=== PATIENT | male | born 1945 | race Caucasian/White ===

== ENCOUNTER 2020-07-13 17:10 | Emergency (ER) | payer OTHER ==
[~2020-07-13] VITALS: Ht 175.3 cm; Wt 70.5 kg
[2020-07-13] MEDS ORDERED: ASPIRIN 81 MG TABLET CHEW ONE (17:36)
[2020-07-13] MEDS ORDERED: METOPROLOL 1 MG/ML, 5ML ONE (17:39)
[2020-07-13] MEDS ORDERED: SODIUM CHLORIDE FLUSH 10ML SYR IVF ONE (18:00)
[2020-07-13] MEDS ORDERED: METOPROLOL 1 MG/ML, 5ML IVPush PRN (18:00)
[2020-07-13] MEDS ORDERED: PLEASE ENTER ALLERGIES MC SCH (18:00)
[2020-07-13] MEDS ORDERED: ASPIRIN 81 MG TABLET CHEW PO ONE (18:00)
[2020-07-13 18:13] LABS: ALBUMIN 3.7 g/dL (3.4-5.0); ANION GAP 6 mmol/L (5-15); CALCIUM 8.7 mg/dL (8.5-10.1); CHLORIDE 109 mmol/L (98-107); CREATININE 1.03 mg/dL (0.7-1.3)
[2020-07-13 18:18] LABS: BASOPHILS % (AUTO) 1 % (0-1); EOSINOPHILS % (AUTO) 6 % (1-7); LYMPHOCYTES % (AUTO) 14 % (22-44); MEAN CORPUSCULAR HEMOGLOBIN 30.7 pg (27.5-34.5); MEAN CORPUSCULAR HGB CONC 33.3 g/dL (33.2-36.2); MEAN PLATELET VOLUME 8.6 fL (7.4-10.4); MONOCYTES % (AUTO) 6 % (2-9); NEUTROPHILS % (AUTO) 73 % (42-75); PLATELET COUNT 191 x10^3/uL (130-400); RED CELL DISTRIBUTION WIDTH 13.8 % (9.4-14.8)
[2020-07-13 18:23] LABS: MD NO
[2020-07-13 18:57] VITALS: BP 140/73
[2020-07-13] MEDS ORDERED: APIXABAN 5 MG TABLET PO ONE (20:30)
[2020-07-13] MEDS ORDERED: APIXABAN 5 MG TABLET ONE (20:39)
[2020-07-13] MEDS ORDERED: OMNIPAQUE 350 MG/ML, 100ML BOTTLE ONE (23:58)
== END 2020-07-13 20:53 | disposition home or self-care (01) ==
LOC: ED 17:59
DX: I48.91 Unspecified atrial fibrillation (principal); R06.00 Dyspnea, unspecified; R07.89 Other chest pain; R06.02 Shortness of breath; R11.0 Nausea; I10 Essential (primary) hypertension; I48.92 Unspecified atrial flutter
CPT/HCPCS: 36415; 71045; 71275; 80048; 82040; 84443; 84484; 85025; 93005; 96374; 99285; Q9967

== ENCOUNTER 2020-10-29 09:50 | Day surgery (SDC) | payer MEDICARE | END 2020-10-29 10:42 | disposition home or self-care (01) | LOC: CACL 09:50 | PROVIDERS: ATTEND Internal Medicine Cardiovascular Disease | DX: I48.91 Unspecified atrial fibrillation (principal); Z53.8 Procedure and treatment not carried out for other reasons; I34.1 Nonrheumatic mitral (valve) prolapse; I77.810 Thoracic aortic ectasia; I10 Essential (primary) hypertension; E78.5 Hyperlipidemia, unspecified; Z79.01 Long term (current) use of anticoagulants; Z79.899 Other long term (current) drug therapy; Z82.49 Family history of ischemic heart disease and other diseases of the circulatory system | CPT/HCPCS: 93005 ==

== ENCOUNTER 2021-01-24 09:50 | Day surgery (SDC) | payer MEDICARE ==
[~2021-01-24] VITALS: Ht 175.3 cm; Wt 83.2 kg
[~2021-01-24 09:50] MED LIST: AMIO200T42 PO; APIX5TAB PO; ATOR20TA37 PO; LISI-170 PO; METO25TA91 PO
[2021-01-24 10:42] VITALS: BP 155/84
[2021-01-24 11:04] LABS: BASOPHILS % (AUTO) 1 % (0-1); EOSINOPHILS % (AUTO) 3 % (1-7); LYMPHOCYTES % (AUTO) 22 % (22-44); MD NO; MEAN CORPUSCULAR HEMOGLOBIN 30.5 pg (27.5-34.5); MEAN CORPUSCULAR HGB CONC 33.7 g/dL (33.2-36.2); MEAN PLATELET VOLUME 8.4 fL (7.4-10.4); MONOCYTES % (AUTO) 7 % (2-9); NEUTROPHILS % (AUTO) 67 % (42-75); PLATELET COUNT 183 x10^3/uL (130-400); RED BLOOD COUNT 5.09 x10^6/uL (4.38-5.82); RED CELL DISTRIBUTION WIDTH 14.4 % (9.4-14.8)
[2021-01-24 11:15] LABS: ANION GAP 4 mmol/L (5-15); CALCIUM 8.5 mg/dL (8.5-10.1); CHLORIDE 108 mmol/L (98-107); CREATININE 1.25 mg/dL (0.7-1.3); INTERNATIONAL NORMALIZED RATIO 1.01 (0.93-1.1); PROTHROMBIN TIME 10.8 Seconds (9.6-11.5)
[2021-01-24] MEDS ORDERED: FENTANYL PF 100 MCG/2ML ONE (11:56)
[2021-01-24] MEDS ORDERED: MIDAZOLAM 1 MG/ML, 5ML ONE (11:56)
[2021-01-24] MEDS ORDERED: VERAPAMIL 2.5 MG/ML, 2ML ONE (11:57)
[2021-01-24] MEDS ORDERED: BIVALIRUDIN 250 MG ONE (11:57)
[2021-01-24] MEDS ORDERED: HEPARIN 1,000 UNITS/ML, 10ML ONE (11:57)
[2021-01-24] MEDS ORDERED: LIDOCAINE-MPF 1%, 5ML ONE (11:57)
[2021-01-24] MEDS ORDERED: TICAGRELOR 90 MG TABLET ONE (11:57)
[2021-01-24] MEDS ORDERED: AMIO200T42 PO (12:46)
[2021-01-24] MEDS ORDERED: SODIUM CHLORIDE 0.9% 1,000 ML IV SCH (13:00)
== END 2021-01-24 14:35 | disposition home or self-care (01) ==
LOC: CACL 09:50
PROVIDERS: ATTEND Internal Medicine Cardiovascular Disease
DX: Z01.810 Encounter for preprocedural cardiovascular examination (principal); I25.10 Atherosclerotic heart disease of native coronary artery without angina pectoris; I25.83 Coronary atherosclerosis due to lipid rich plaque; I34.0 Nonrheumatic mitral (valve) insufficiency; I10 Essential (primary) hypertension; Z79.01 Long term (current) use of anticoagulants; Z79.899 Other long term (current) drug therapy
CPT/HCPCS: 36415; 80048; 85025; 85610; 85730; 93458; 99156; C1769; C1894; J1644; J2250; J3010; Q9967; J0583